=== PATIENT | male | born 1990 | race Caucasian/White ===

== ENCOUNTER 2018-02-04 07:07 | Day surgery (SDC) | payer OTHER ==
[~2018-02-04] VITALS: Ht 175.3 cm; Wt 100.0 kg
[2018-02-04] VITALS (7 sets, daily range): BP systolic 109–128; BP diastolic 60–83; PULSE 67–90; TEMP 97.7–98
[2018-02-04] MEDS ORDERED: ASPIRIN E.C. 8181 MG PO (07:27)
[2018-02-04] MEDS ORDERED: MULTIVITAMIN1 CTB PO (07:28)
[2018-02-04 08:10] LABS: HEMATOCRIT 48.7 % (42.0-52.0); HEMOGLOBIN 16.3 g/dl (13.5-18.0); MEAN CELL VOLUME 78 fl (80.0-100.0); MEAN CORPUSCULAR HEMOGLOBIN 26 pg (27.0-31.0); MEAN CORPUSCULAR HGB CONC 34 g/dl (33.0-37.0); MEAN PLATELET VOLUME 9.3 fl (7.4-10.4); PLATELET COUNT 217 K/mm3 (130-400); RED BLOOD COUNT 6.23 M/mm3 (4.20-5.60); REDCELL DISTRIBUTION WIDTH-CV 12.9 % (11.5-14.5)
[2018-02-04 08:12] LABS: INR 1.1 (0.8-3.0)
[2018-02-04 08:16] LABS: CALCIUM 9.2 mg/dL (8.4-10.2); CREATININE, serum 1.13 mg/dL (0.66-1.25); POTASSIUM 4.8 mmol/L (3.4-5.0)
[2018-02-04 08:46] LABS: THYROID STIMULATING HORMONE 1.63 uIU/mL (0.465-4.680)
[2018-02-04] MEDS ORDERED: CEPHALEXIN500 M1 PO (09:54)
== END 2018-02-04 12:32 | disposition home or self-care (01) ==
LOC: COL.CAR 07:07
PROVIDERS: Internal Medicine Cardiovascular Disease
DX: I48.92 Unspecified atrial flutter (principal); R55 Syncope and collapse; Z87.891 Personal history of nicotine dependence; Z83.3 Family history of diabetes mellitus
CPT/HCPCS: C1764; J2175; J2250; J7030